=== PATIENT | female | born 1960 | race American Indian/Alaskan Native ===

== ENCOUNTER 2018-01-04 16:46 | Emergency (ER) | payer MEDICAID ==
[2018-01-04 17:21] VITALS: BP 133/83; PULSE 86; RESP 17; TEMP 100.6; O2SAT 97
== END 2018-01-04 18:20 | disposition left against medical advice (07) ==
LOC: ED 16:46
DX: Z02.89 Encounter for other administrative examinations (principal); R10.9 Unspecified abdominal pain